=== PATIENT | female | born 1960 | race Caucasian/White ===

== ENCOUNTER 2020-02-08 08:32 | Outpatient (CLI) | payer OTHER, SELFPAY | END 2020-02-08 08:33 | disposition home or self-care (01) | LOC: CHSLAB 08:35 | PROVIDERS: PCP Internal Medicine; Visit Provider Specialist | DX: C44.1122 Basal cell carcinoma of skin of right lower eyelid, including canthus (principal); C44.1121 Basal cell carcinoma of skin of right upper eyelid, including canthus | CPT/HCPCS: 88305 ==

== ENCOUNTER 2020-07-14 06:53 | Outpatient (CLI) | payer OTHER, SELFPAY ==
[2020-07-14 07:07] LABS: Add Urine Microscopic? YES; Appearance Urine Clear (Clear); Bilirubin Urine Negative (Negative); Blood Urine 1+ (Negative); Color Urine Yellow (Yellow); Glucose Urine UA Negative (Negative); Ketones Urine Negative (Negative); Leukocyte Esterase Ur Negative (Negative); Nitrate Urine Negative (Negative); Protein Urine Negative (Negative); Urobilinogen Urine 0.2 mg/dL (0.2-1.0); pH Urine 6.5 (5.0-8.0)
[2020-07-14 07:07] LABS: Basophils Absolute Auto 0.03 K/mm3 (0.00-0.10); Basophils Percent Auto 0.6 % (0.0-1.0); Eosinophils Absolute Auto 0.12 K/mm3 (0.02-0.50); Eosinophils Percent Auto 2.4 % (1.0-6.0); Hemoglobin 13.6 g/dL (12.0-15.0); Immature Granulocyte Absolute 0.02 K/mm3 (0.00-0.00); Immature Granulocyte Percent A 0.4 % (0.0-0.0); Lymphocytes Absolute Auto 1.78 K/mm3 (1.10-4.50); Mean Corpuscular Hemoglobin 33.2 pg (27.0-31.0); Mean Corpuscular Volume 97.6 fL (78.0-102.0); Monocytes Absolute Auto 0.46 K/mm3 (0.10-0.90); Neutrophils Absolute Auto 2.7 K/mm3 (1.7-7.2); Neutrophils Percent Auto 52.6 % (50.0-70.0); Platelet Count Result 263 K/mm3 (150-420); White Blood Count 5.1 K/mm3 (4.8-10.8)
[2020-07-14 07:40] LABS: Mucus Urine Moderate /lpf; Squamous Epithelial Cell Urine Few /hpf (Few)
[2020-07-14 07:41] LABS: Bacteria Urine Trace /hpf
[2020-07-14 08:23] LABS: Alanine Aminotransferase 39 U/L (14-59); Albumin Level 4.2 g/dL (3.4-5.0); Alkaline Phosphatase 70 U/L (46-116); Anion Gap 8 mmol/L (8-16); Aspartate Amino Transferase 26 U/L (15-37); Bilirubin,Total 0.7 mg/dL (0.00-1.00); Blood Urea Nitrogen 13 mg/dL (7-18); Calcium 9.3 mg/dL (8.5-10.1); Carbon Dioxide 29 mmol/L (21-32); Chloride 103 mmol/L (98-108); Cholesterol 230 mg/dL (0-200); Estimated Glomerular Filt Rate > 60; Glucose 100 mg/dL (70-99); HDL Direct 112 mg/dL (40-60); LDL Cholesterol Calculated 103 mg/dL (<130); Osmolality Calculated 290 mOsm/kg (285-295); Potassium 3.6 mmol/L (3.5-5.1); Sodium 140 mmol/L (136-145); Thyroid Stimulating Hormone 1.29 uIU/mL (0.36-3.74); Triglycerides 75 mg/dL (0-150)
[2020-07-14 08:37] LABS: Free T4 Free Thyroxine 0.89 ng/dL (0.76-1.46)
[2020-07-17 22:10] LABS: Vitamin D 25 Hydroxy 34 ng/mL (30-100)
== END 2020-07-14 06:54 | disposition home or self-care (01) ==
LOC: CHSLAB 06:55
PROVIDERS: PCP Internal Medicine; Visit Provider Internal Medicine
DX: Z00.00 Encounter for general adult medical examination without abnormal findings (principal)
CPT/HCPCS: 36415; 80053; 80061; 81001; 82306; 84439; 84443; 85025

== ENCOUNTER 2020-07-19 13:56 | Outpatient (CLI) | payer OTHER, SELFPAY ==
--- NOTE | ~2020-07-19 | MM_ITS ---
EXAMINATION: MM screening [facility] BI w antonia HISTORY: Screening mammogram TECHNIQUE: Craniocaudal and mediolateral oblique 3-D tomosynthesis images were obtained and synthetic 2-D images were generated. CAD analysis was submitted and interpreted. COMPARISON: 05/28/2019 limited left breast ultrasound examination 05/30/2019, 02/12/2018, 08/26/2016 bilateral digital screening mammogram examinations BREAST PARENCHYMAL COMPOSITION: The breasts are heterogeneously dense, which may obscure small masses . FINDINGS: Scattered bilateral benign punctate microcalcifications. Approximately 1 cm low-density cir cumscribed cyst in the upper mid left breast, diminished in size since 2017. There is no evidence of suspicious mass, calcification, or architectural distortion to suggest malignancy in either breast. T here has been no suspicious interval change. IMPRESSION: 1. No mammographic evidence of malignancy. 2. Recommend routine screening mammography in one year. BI-RADS Category 2: Benign finding(s). Reviewed, dictated and finalized at location A. AG MACHINE OPERATOR
== END 2020-07-19 13:57 | disposition home or self-care (01) ==
LOC: CHSIMG 13:57
PROVIDERS: PCP Internal Medicine; Visit Provider Obstetrics & Gynecology
DX: Z12.31 Encounter for screening mammogram for malignant neoplasm of breast (principal)
CPT/HCPCS: 77063; 77067

== ENCOUNTER 2020-08-18 11:02 | Outpatient (CLI) | payer OTHER, SELFPAY ==
--- NOTE | ~2020-08-18 | DEXA_ITS ---
Bone Density Report Name: Suzan Casey Age: 60 Sex: Female Ethnicity: White Date of : 1960 Indication: postmenopausal; screening for osteoporosis; Referring Provider: Moriah Acuna Study: Bone densitometry was performed. Exam Date: August 18, 2020 Accession number: [id number] Bone Density: Region BMD T-score Z-score Classification AP Spine(L1-L4) 0.850 -1.8 -0.3 Osteopenia Femoral Neck (Left) 0.739 -1.0 0.3 Normal Total Hip (Left) 0.928 -0.1 0.9 Normal Femoral Neck (Right) 0.753 -0.9 0.5 Normal Total Hip (Right) 0.931 -0.1 0.9 Normal Femoral Neck Mean 0.746 -0.9 0.4 Normal Total Hip Mean 0.930 -0.1 0.9 Normal World Health Organization criteria for BMD impression classify patients as: Normal (T-score at or above -1.0), Osteopenia (T-score between -1.0 and -2.5), or Osteoporosis (T-score at or below -2.5). 10-year Fracture Risk(1): Major Osteoporotic Fracture 6.9% Hip Fracture 0.4% Reported Risk Factors: [place] (), Neck BMD=0.739, BMI=33.5 (1) FRAX(R) Version 3.08. Fracture probability calculated for an untreated patient. Fracture probability may be lower if the patient has received treatment. Clinical Information Provided by Patient: Menopause Age: 44 No regular weight bearing exercise Drinks caffeinated beverages Onset of menses at age 15 Number of children 3 Impression: The patient has low bone mass, based on the Total Spine T-score. Discussion: BONE DENSITY IS LOW AT ONE OR MORE SKELETAL SITES. This patient's lowest T-score is low at one or more skeletal sites. It meets the World Health Organization's (WHO) criteria for ?low bone mass? (T-score between -1.0 and -2.5). The patient's 10-year risk of fracture as calculated by FRAX is less than the threshold where pharmacological therapy is recommended by the National Osteoporosis Foundation (NOF). However, all treatment decisions require clinical judgment and consideration of individual patient factors, including patient preferences, comorbidities, previous drug use, risk factors not captured in the FRAX model (e.g., frailty, falls, vitamin D deficiency, increased bone turnover, interval significant decline in bone density) and possible under or overestimation of fracture risk by FRAX. The patient should follow a healthful lifestyle (good nutrition with adequate calcium and vitamin D, and appropriate weight-bearing exercise). Follow-Up: Consider repeating this study in 2 to 3 years to reassess this patient's status, or sooner if there is some new clinical indication. Reported by: Dr. Miles Uriarte on 08/18/2020 11:31:00 AM. Reviewed, dictated and finalized at location AJulita NEWELL
== END 2020-08-18 11:03 | disposition home or self-care (01) ==
LOC: CHSIMG 11:04
PROVIDERS: PCP Internal Medicine; Visit Provider Internal Medicine
DX: M81.0 Age-related osteoporosis without current pathological fracture (principal)
CPT/HCPCS: 77080

== ENCOUNTER 2021-07-20 08:17 | Outpatient (CLI) | payer OTHER, SELFPAY ==
[2021-07-20 08:39] LABS: Basophils Absolute Auto 0.03 K/mm3 (0.00-0.10); Basophils Percent Auto 0.4 % (0.0-1.0); Eosinophils Percent Auto 1.2 % (1.0-6.0); Hematocrit 42.7 % (35.0-49.0); Hemoglobin 14.2 g/dL (12.0-15.0); Immature Granulocyte Absolute 0.04 K/mm3 (0.00-0.00); Immature Granulocyte Percent A 0.5 % (0.0-0.0); Lymphocytes Absolute Auto 1.21 K/mm3 (1.10-4.50); Lymphocytes Percent Auto 14.6 % (18.0-42.0); Mean Corpuscular HGB Conc 33.3 g/dL (32.0-36.0); Mean Corpuscular Hemoglobin 33.6 pg (27.0-31.0); Mean Corpuscular Volume 100.9 fL (78.0-102.0); Mean Platelet Volume 9.6 fl (9.2-11.8); Monocytes Absolute Auto 0.84 K/mm3 (0.10-0.90); Monocytes Percent Auto 10.2 % (2.0-11.0); Neutrophils Absolute Auto 6.1 K/mm3 (1.7-7.2); Neutrophils Percent Auto 73.1 % (50.0-70.0); Platelet Count Result 256 K/mm3 (150-420); Red Blood Count 4.23 M/mm3 (4.20-5.40); Red Cell Distribution Width 13.2 % (11.6-14.4); White Blood Count 8.3 K/mm3 (4.8-10.8)
[2021-07-20 08:43] LABS: Add Urine Microscopic? YES; Appearance Urine Clear (Clear); Bilirubin Urine Negative (Negative); Blood Urine 1+ (Negative); Color Urine Yellow (Yellow); Glucose Urine UA Negative (Negative); Ketones Urine Negative (Negative); Leukocyte Esterase Ur Negative (Negative); Nitrate Urine Negative (Negative); Protein Urine Negative (Negative); Urobilinogen Urine 0.2 mg/dL (0.2-1.0)
[2021-07-20 08:49] LABS: RBC Urine 0-2 /hpf (0-2); WBC Urine None seen /hpf (0-3)
[2021-07-20 08:50] LABS: Bacteria Urine Trace /hpf; Squamous Epithelial Cell Urine Few /hpf (Few)
[2021-07-20 08:51] LABS: Creatinine Urine 90.64 mg/dL (40-278); MALB Creatinine Ratio 14.3 mg/g (0-30); Microalbumin Urine Random < 13.0 mg/L
[2021-07-20 09:31] LABS: Alanine Aminotransferase 43 U/L (14-59); Alkaline Phosphatase 73 U/L (46-116); Anion Gap 10 mmol/L (8-16); Aspartate Amino Transferase 37 U/L (15-37); Bilirubin,Total 0.7 mg/dL (0.00-1.00); Blood Urea Nitrogen 17 mg/dL (7-18); Calcium 8.8 mg/dL (8.5-10.1); Carbon Dioxide 28 mmol/L (21-32); Chloride 102 mmol/L (98-108); Cholesterol 221 mg/dL (0-200); Estimated Glomerular Filt Rate > 60; Free T3 2.65 pg/mL (2.18-3.98); Free T4 Free Thyroxine 0.82 ng/dL (0.76-1.46); Glucose 87 mg/dL (70-99); HDL Direct 112 mg/dL (40-60); LDL Cholesterol Calculated 99 mg/dL (<130); Osmolality Calculated 290 mOsm/kg (285-295); Sodium 140 mmol/L (136-145); Thyroid Stimulating Hormone 1.02 uIU/mL (0.36-3.74); Triglycerides 49 mg/dL (0-150)
[2021-07-24 14:36] LABS: Vitamin D 25 Hydroxy 34 ng/mL (30-100)
== END 2021-07-20 08:18 | disposition home or self-care (01) ==
LOC: CHSLAB 08:20
PROVIDERS: PCP Internal Medicine; Visit Provider Internal Medicine
DX: Z00.00 Encounter for general adult medical examination without abnormal findings (principal); I10 Essential (primary) hypertension
CPT/HCPCS: 36415; 80053; 80061; 81001; 82043; 82306; 84439; 84443; 84481; 85025; 86787

== ENCOUNTER 2021-07-23 11:17 | Outpatient (CLI) | payer OTHER, SELFPAY ==
--- NOTE | ~2021-07-23 | MM_ITS ---
EXAMINATION: MM screening [facility] BI w antonia HISTORY: Screening mammogram TECHNIQUE: Craniocaudal and mediolateral oblique 3-D tomosynthesis images were obtained and synthetic 2-D images were generated. CAD analysis was submitted and interpreted. COMPARISON: 07/19/2020, 05/20/2019, 02/12/2018 BREAST PARENCHYMAL COMPOSITION: There are scattered areas of fibroglandular density. FINDINGS: There is no evidence of suspicious mass, calcification, or architectural distortion to sugg est malignancy in either breast. There has been no suspicious interval change. IMPRESSION: 1. No mammographic evidence of malignancy. 2. Recommend routine screening mammography in one year. BI-RADS Category 1: Negative Reviewed, dictated and finalized at location A.
== END 2021-07-23 11:18 | disposition home or self-care (01) ==
LOC: CHSIMG 11:19
PROVIDERS: PCP Internal Medicine; Visit Provider Internal Medicine
DX: Z12.31 Encounter for screening mammogram for malignant neoplasm of breast (principal)
CPT/HCPCS: 77063; 77067

== ENCOUNTER 2022-07-20 10:15 | Outpatient (CLI) | payer OTHER, SELFPAY ==
[2022-07-20 10:31] LABS: Appearance Urine Slightly Cloudy (Clear); Basophils Absolute Auto 0.05 K/mm3 (0.00-0.10); Basophils Percent Auto 0.9 % (0.0-1.0); Bilirubin Urine Negative (Negative); Blood Urine Trace-Intact (Negative); Color Urine Yellow (Yellow); Eosinophils Absolute Auto 0.15 K/mm3 (0.02-0.50); Eosinophils Percent Auto 2.7 % (1.0-6.0); Glucose Urine UA Negative (Negative); Hematocrit 38.9 % (35.0-49.0); Hemoglobin 13.1 g/dL (12.0-15.0); Immature Granulocyte Absolute 0.02 K/mm3 (0.00-0.00); Immature Granulocyte Percent A 0.4 % (0.0-0.0); Ketones Urine Negative (Negative); Leukocyte Esterase Ur Trace LEU/UL (Negative); Lymphocytes Absolute Auto 2.16 K/mm3 (1.10-4.50); Lymphocytes Percent Auto 39.6 % (18.0-42.0); Mean Corpuscular HGB Conc 33.7 g/dL (32.0-36.0); Mean Corpuscular Hemoglobin 32.9 pg (27.0-31.0); Mean Corpuscular Volume 97.7 fL (78.0-102.0); Mean Platelet Volume 10.2 fl (9.2-11.8); Monocytes Absolute Auto 0.54 K/mm3 (0.10-0.90); Monocytes Percent Auto 9.9 % (2.0-11.0); Neutrophils Absolute Auto 2.5 K/mm3 (1.7-7.2); Neutrophils Percent Auto 46.5 % (50.0-70.0); Nitrate Urine Negative (Negative); Platelet Count Result 295 K/mm3 (150-420); Protein Urine Negative (Negative); Red Blood Count 3.98 M/mm3 (4.20-5.40); Red Cell Distribution Width 13.7 % (11.6-14.4); Urobilinogen Urine 0.2 mg/dL (0.2-1.0); White Blood Count 5.5 K/mm3 (4.8-10.8)
[2022-07-20 10:38] LABS: Add Urine Microscopic? YES; Amorphous Sediment Urine Moderate; Bacteria Urine Trace /hpf; RBC Urine 0-2 /hpf (0-2); Squamous Epithelial Cell Urine Few /hpf (Few); WBC Urine 0-3 /hpf (0-3)
[2022-07-20 11:06] LABS: Alanine Aminotransferase 33 U/L (14-59); Albumin Level 4.1 g/dL (3.4-5.0); Alkaline Phosphatase 67 U/L (46-116); Anion Gap 9 mmol/L (8-16); Aspartate Amino Transferase 25 U/L (15-37); Bilirubin,Total 0.5 mg/dL (0.00-1.00); Blood Urea Nitrogen 16 mg/dL (7-18); Carbon Dioxide 28 mmol/L (21-32); Chloride 106 mmol/L (98-108); Cholesterol 261 mg/dL (0-200); Estimated Glomerular Filt Rate > 60; Glucose 113 mg/dL (70-99); HDL Direct 123 mg/dL (40-60); LDL Cholesterol Calculated 129 mg/dL (<130); Osmolality Calculated 298 mOsm/kg (285-295); Potassium 4.2 mmol/L (3.5-5.1); Sodium 143 mmol/L (136-145); Thyroid Stimulating Hormone 1.03 uIU/mL (0.36-3.74); Total Protein 7.3 g/dL (6.4-8.2); Triglycerides 45 mg/dL (0-150)
[2022-07-22 15:13] LABS: Calcium 9.2 mg/dL (8.5-10.1)
== END 2022-07-20 10:16 | disposition home or self-care (01) ==
PROVIDERS: PCP Internal Medicine; Visit Provider Internal Medicine
DX: Z00.00 Encounter for general adult medical examination without abnormal findings (principal)
CPT/HCPCS: 36415; 80053; 80061; 81001; 84439; 84443; 85025

== ENCOUNTER 2022-07-25 07:55 | Outpatient (CLI) | payer OTHER, SELFPAY ==
--- NOTE | ~2022-07-25 | MM_ITS ---
EXAMINATION: MM screening flavio BI w antonia HISTORY: Screening mammogram TECHNIQUE: Craniocaudal and mediolateral oblique 3-D tomosynthesis images were obtained and synthetic 2-D images were generated. CAD analysis was submitted and interpreted. COMPARISON: 07/23/2021, 07/19/2020 bilateral screening mammograms 05/28/2019 limited left breast ultrasound: Findings included 10 x 11.3 mm simple cyst at 12:00 2 cm fr om nipple 05/20/2019 bilateral screening mammogram BREAST PARENCHYMAL COMPOSITION: There are scattered areas of fibroglandular density. FINDINGS: Mildly diminished size of left 12:00 breast cyst since 05/20/2019, currently measuring betwee n 8 and 9 mm, compared to the 10 x 11.3 mm measurement on 05/28/2019 left breast ultrasound examinatio n. There is no evidence of suspicious mass, calcification, or architectural distortion to suggest malig bert in either breast. There has been no suspicious interval change. IMPRESSION: 1. No mammographic evidence of malignancy. 2. Recommend routine screening mammography in one year. BI-RADS Category 2: Benign finding(s). Reviewed, dictated and finalized at location A.
--- NOTE | ~2022-07-25 | US_ITS ---
EXAMINATION: US aorta [facility] DATE: 07/25/2022 08:44 INDICATION: Abdominal aortic aneurysm TECHNIQUE: Grayscale, color Doppler, and pulsed Doppler images of the aorta and common iliac arteries were obtained. COMPARISON: None. FINDINGS: The proximal aorta measures 2.3 cm. The mid aorta measures 1.9 cm. The distal aorta measures 1.8 cm. The right common iliac artery measures 1.0 cm. The left common iliac artery measures 1.3 cm. IMPRESSION: 1. Normal caliber abdominal aorta Reviewed, dictated and finalized at location L.
--- NOTE | ~2022-07-25 | US_ITS ---
EXAMINATION: US carotid duplex BI DATE: 07/25/2022 08:44 INDICATION: Carotid bruit. TECHNIQUE: Grayscale, color Doppler, and pulsed Doppler images of the cervical carotid arteries were obtained. The degree of vessel stenosis is placed in one of the following categories: normal, <50%, 5 0-69%, >=70% but less than near-occlusion, near-occlusion, or total occlusion. Note that percent sten osis relative to normal distal artery lumen diameter is indirectly measured from velocity measurement s as described by Enoch, et al. Radiology 2003; 229:340-346. COMPARISON: None. FINDINGS: RIGHT: The right common carotid artery (CCA) peak systolic velocity (PSV) is 144 cm/s. The right internal ca rotid artery (ICA) PSV is 94 cm/s. The right ICA end-diastolic velocity (EDV) is 47 cm/s. The right I CA/CCA PSV ratio is 0.7. Grayscale and color Doppler images yield an estimate of <50% diameter reduct ion from plaque in the ICA. The external carotid artery (ECA) PSV is 131 cm/s. There is antegrade marcelo w in the right vertebral artery. LEFT: The left CCA PSV is 151 cm/s. The left ICA PSV is 114 cm/s. The left ICA EDV is 43 cm/s. The left ICA /CCA PSV ratio is 0.8. Grayscale and color Doppler images yield an estimate of <50% diameter reductio n from plaque in the ICA. The ECA PSV is 171 cm/s. There is antegrade flow in the left vertebral ernesto ry. IMPRESSION: 1. <50% stenosis from minimal plaque in the right internal carotid artery. 2. <50% stenosis from minimal plaque in the left internal carotid artery. Reviewed, dictated and finalized at location L.
--- NOTE | ~2022-07-25 | DEXA_ITS ---
Bone Density Report Name: MATIAS RODRIGUEZ Age: 62 Sex: Female Ethnicity: White Date of : 1960 Indication: postmenopausal; screening for osteoporosis; height loss; Referring Provider: Moriah Acuna Study: Bone densitometry was performed. Exam Date: July 25, 2022 Accession number: [id number] Bone Density: Region BMD T-score Z-score Classification AP Spine(L1-L4) 0.839 -1.9 -0.3 Osteopenia Femoral Neck (Left) 0.741 -1.0 0.4 Normal Total Hip (Left) 0.945 0.0 1.1 Normal Femoral Neck (Right) 0.813 -0.3 1.1 Normal Total Hip (Right) 0.930 -0.1 1.0 Normal Femoral Neck Mean 0.777 -0.7 0.8 Normal Total Hip Mean 0.937 0.0 1.1 Normal World Health Organization criteria for BMD impression classify patients as: Normal (T-score at or above -1.0), Osteopenia (T-score between -1.0 and -2.5), or Osteoporosis (T-score at or below -2.5). 10-year Fracture Risk(1): Major Osteoporotic Fracture 7.2% Hip Fracture 0.4% Reported Risk Factors: [place] (), Neck BMD=0.741, BMI=34.1 (1) FRAX(R) Version 3.08. Fracture probability calculated for an untreated patient. Fracture probability may be lower if the patient has received treatment. Clinical Information Provided by Patient: Patient maximum height was 68 Menopause Age: 44 Drinks caffeinated beverages Onset of menses at age 15 Number of children 3 Impression: The patient has low bone mass, based on the Total Spine T-score. Discussion: BONE DENSITY IS LOW AT ONE OR MORE SKELETAL SITES. This patient's lowest T-score is low at one or more skeletal sites. It meets the World Health Organization's (WHO) criteria for ?low bone mass? (T-score between -1.0 and -2.5). The patient's 10-year risk of fracture as calculated by FRAX is less than the threshold where pharmacological therapy is recommended by the National Osteoporosis Foundation (NOF). However, all treatment decisions require clinical judgment and consideration of individual patient factors, including patient preferences, comorbidities, previous drug use, risk factors not captured in the FRAX model (e.g., frailty, falls, vitamin D deficiency, increased bone turnover, interval significant decline in bone density) and possible under or overestimation of fracture risk by FRAX. The patient should follow a healthful lifestyle (good nutrition with adequate calcium and vitamin D, and appropriate weight-bearing exercise). Follow-Up: Consider repeating this study in 2 to 3 years to reassess this patient's status, or sooner if there is some new clinical indication. Reported by: Dr. Miles Uriarte on 07/25/2022 9:27:00 AM. Reviewed, dictated and finalized at location AJulita NEWELL
[2022-07-25 08:29] LABS: Hemoglobin A1C 5.3 % (<5.7)
[2022-07-25 09:40] LABS: Anion Gap 11 mmol/L (8-16); Blood Urea Nitrogen 14 mg/dL (7-18); Calcium 9.2 mg/dL (8.5-10.1); Carbon Dioxide 27 mmol/L (21-32); Chloride 108 mmol/L (98-108); Estimated Glomerular Filt Rate > 60; Glucose 95 mg/dL (70-99); Osmolality Calculated 302 mOsm/kg (285-295); Sodium 146 mmol/L (136-145)
== END 2022-07-25 07:56 | disposition home or self-care (01) ==
PROVIDERS: PCP Internal Medicine; Visit Provider Internal Medicine
DX: R73.01 Impaired fasting glucose (principal); M81.0 Age-related osteoporosis without current pathological fracture; R09.89 Other specified symptoms and signs involving the circulatory and respiratory systems; Z12.31 Encounter for screening mammogram for malignant neoplasm of breast; Z78.0 Asymptomatic menopausal state; I65.23 Occlusion and stenosis of bilateral carotid arteries; M85.88 Other specified disorders of bone density and structure, other site
CPT/HCPCS: 36415; 76706; 77063; 77067; 77080; 80048; 83036; 93880

== ENCOUNTER 2023-07-21 10:04 | Outpatient (CLI) | payer OTHER, SELFPAY ==
[2023-07-21 10:24] LABS: Appearance Urine Clear (Clear); Basophils Absolute Auto 0.04 K/mm3 (0.00-0.10); Basophils Percent Auto 0.8 % (0.0-1.0); Bilirubin Urine Negative (Negative); Blood Urine 1+ (Negative); Color Urine Yellow (Yellow); Eosinophils Absolute Auto 0.15 K/mm3 (0.02-0.50); Glucose Urine UA Negative (Negative); Hematocrit 42.9 % (35.0-49.0); Hemoglobin 14.5 g/dL (12.0-15.0); Immature Granulocyte Absolute 0.03 K/mm3 (0.00-0.00); Immature Granulocyte Percent A 0.6 % (0.0-0.0); Ketones Urine Negative (Negative); Leukocyte Esterase Ur Negative LEU/UL (Negative); Lymphocytes Absolute Auto 1.87 K/mm3 (1.10-4.50); Lymphocytes Percent Auto 37.6 % (18.0-42.0); Mean Corpuscular HGB Conc 33.8 g/dL (32.0-36.0); Mean Corpuscular Hemoglobin 32.7 pg (27.0-31.0); Mean Corpuscular Volume 96.6 fL (78.0-102.0); Mean Platelet Volume 9.5 fl (9.2-11.8); Monocytes Absolute Auto 0.51 K/mm3 (0.10-0.90); Monocytes Percent Auto 10.2 % (2.0-11.0); Neutrophils Absolute Auto 2.4 K/mm3 (1.7-7.2); Neutrophils Percent Auto 47.8 % (50.0-70.0); Nitrate Urine Negative (Negative); Platelet Count Result 247 K/mm3 (150-420); Protein Urine Negative (Negative); Red Blood Count 4.44 M/mm3 (4.20-5.40); Urobilinogen Urine 0.2 mg/dL (0.2-1.0); pH Urine 6.5 (5.0-8.0)
[2023-07-21 10:36] LABS: Add Urine Microscopic? YES; Bacteria Urine Rare /hpf; RBC Urine 0-2 /hpf (0-2); Squamous Epithelial Cell Urine Few /hpf (Few); WBC Urine None seen /hpf (0-3)
[2023-07-21 11:13] LABS: Alanine Aminotransferase 34 U/L (14-59); Albumin Level 3.9 g/dL (3.4-5.0); Alkaline Phosphatase 64 U/L (46-116); Anion Gap 10 mmol/L (8-16); Aspartate Amino Transferase 19 U/L (15-37); Bilirubin,Total 0.6 mg/dL (0.00-1.00); Blood Urea Nitrogen 16 mg/dL (7-18); Calcium 8.9 mg/dL (8.5-10.1); Carbon Dioxide 28 mmol/L (21-32); Chloride 104 mmol/L (98-108); Cholesterol 250 mg/dL (0-200); Estimated Glomerular Filt Rate > 60; Glucose 102 mg/dL (70-99); HDL Direct 125 mg/dL (40-60); LDL Cholesterol Calculated 116 mg/dL (<130); Osmolality Calculated 295 mOsm/kg (285-295); Sodium 142 mmol/L (136-145); Total Protein 7.1 g/dL (6.4-8.2); Triglycerides 44 mg/dL (0-150)
== END 2023-07-21 10:05 | disposition home or self-care (01) ==
LOC: CHSLAB 10:09
PROVIDERS: PCP Internal Medicine; Visit Provider Internal Medicine
DX: Z00.00 Encounter for general adult medical examination without abnormal findings (principal)
CPT/HCPCS: 36415; 80053; 80061; 81001; 85025

== ENCOUNTER 2023-07-28 13:09 | Outpatient (CLI) | payer OTHER, SELFPAY ==
--- NOTE | ~2023-07-28 | MM_ITS ---
EXAMINATION: MM screening [facility] BI w antonia HISTORY: Screening TECHNIQUE: Craniocaudal and mediolateral oblique 3-D tomosynthesis images were obtained and synthetic 2-D images were generated. CAD analysis was submitted and interpreted. COMPARISON: Comparison to multiple prior studies sequentially, with oldest reviewed study dated 08/26. BREAST PARENCHYMAL COMPOSITION: Dense: The breasts are heterogeneously dense, which may obscure small masses FINDINGS: The left breast is stable without evidence for malignancy. There are developing nodular asy mmetries centered in the upper outer quadrant of the right breast, middle third. IMPRESSION: 1. Developing nodular asymmetries of the right breast. 2. Additional mammographic views and possible breast ultrasound are recommended. BI-RADS Category 0: Incomplete: Needs additional imaging evaluation. Reviewed, dictated and finalized at location A. IMPRESSION: 1. Developing nodular asymmetries of the right breast. 2. Additional mammographic views and possible breast ultrasound are recommended . BI-RADS Category 0: Incomplete: Needs additional imaging evaluation.
== END 2023-07-28 13:10 | disposition home or self-care (01) ==
LOC: CHSIMG 13:10
PROVIDERS: PCP Internal Medicine; Visit Provider Obstetrics & Gynecology
DX: Z12.31 Encounter for screening mammogram for malignant neoplasm of breast (principal); R92.8 Other abnormal and inconclusive findings on diagnostic imaging of breast
CPT/HCPCS: 77063; 77067

== ENCOUNTER 2023-08-25 08:48 | Outpatient (CLI) | payer OTHER, SELFPAY ==
--- NOTE | ~2023-08-25 | MMUS_ITS ---
EXAMINATION: MM diagnostic flavio RT w antonia, US breast RT complete HISTORY: Follow-up developing nodular asymmetries of the right breast TECHNIQUE: Additional 3-D tomosynthesis images of the right breast were performed and synthetic 2-D i mages were generated. CAD analysis was submitted and interpreted. High resolution complete right hugo st ultrasound was performed. COMPARISON: Comparison to multiple prior studies sequentially, with oldest reviewed study dated 08/2017. BREAST PARENCHYMAL COMPOSITION: Dense: The breasts are heterogeneously dense, which may obscure small masses FINDINGS: MAMMOGRAPHIC FINDINGS: In the upper central aspect of the right breast there is a radiolucent mass which is partially obscur ed by fibroglandular tissue. ULTRASOUND: Complete US of all 4 quadrants of the right breast and retroareolar region was reviewed. At 12:00, 5 cm from the nipple there is a 6 mm cyst corresponding to the mammographic finding. No other masses or cysts are identified in the right breast. IMPRESSION: 1. No evidence for malignancy in the right breast. Benign finding. 2. Routine yearly screening mammogram and regular clinical breast examination are recommended. BI-RADS Category 2: Benign finding(s). Reviewed, dictated and finalized at location A. IMPRESSION: 1. No evidence for malignancy in the right breast. Benign finding. 2. Routine yearly screening mammogram and regular clinical breast examination a re recommended. BI-RADS Category 2: Benign finding(s).
== END 2023-08-25 08:49 | disposition home or self-care (01) ==
LOC: CHSIMG 08:53
PROVIDERS: PCP Internal Medicine; Visit Provider Internal Medicine
DX: R92.8 Other abnormal and inconclusive findings on diagnostic imaging of breast (principal)
CPT/HCPCS: 76641; 77061; 77065; G0279

== ENCOUNTER 2024-07-20 09:27 | Outpatient (CLI) | payer MEDICARE, OTHER, SELFPAY ==
[2024-07-20 09:52] LABS: Basophils Absolute Auto 0.05 K/mm3 (0.00-0.10); Eosinophils Percent Auto 2.1 % (1.0-6.0); Hematocrit 44.4 % (35.0-42.0); Hemoglobin 14.7 g/dL (11.7-13.8); Immature Granulocyte Absolute 0.02 K/mm3 (0.00-0.00); Immature Granulocyte Percent A 0.4 % (0.0-0.0); Lymphocytes Absolute Auto 1.63 K/mm3 (1.10-4.50); Mean Corpuscular HGB Conc 33.1 g/dL (32-36); Mean Corpuscular Hemoglobin 32.5 pg (27.0-31.0); Mean Corpuscular Volume 98.2 fL (78.0-102.0); Mean Platelet Volume 9.7 fl (9.2-11.8); Monocytes Percent Auto 10.4 % (2.0-11.0); Neutrophils Percent Auto 52.1 % (50.0-70.0); Platelet Count Result 290 K/mm3 (150-420); Red Blood Count 4.52 M/mm3 (4.20-5.40); Red Cell Distribution Width 13.8 % (11.6-14.4); White Blood Count 4.8 K/mm3 (4.8-10.8)
[2024-07-20 09:53] LABS: Add Urine Microscopic? NO; Appearance Urine Clear (Clear); Bilirubin Urine Negative (Negative); Blood Urine Trace-intact (Negative); Color Urine Yellow (Yellow); Glucose Urine UA Negative (Negative); Ketones Urine Negative (Negative); Leukocyte Esterase Ur Negative LEU/UL (Negative); Nitrate Urine Negative (Negative); Protein Urine Negative (Negative); Urobilinogen Urine 0.2 mg/dL (0.2-1.0); pH Urine 6.5 (5.0-8.0)
--- OUTSIDE RECORDS SUMMARY | 2024-07-20 10:26 | XMS_ITS | Clinical Summary ---
Author Organization [facility] Address [address] [place] [id number] Care Team Providers Care Department Helper Name Role Phone Unavailable Primary Care Provider Unavailabl e Social History Tobacco Use Types Packs/Day Years Used Date Smoking Tobacco: Never Assessed Comments Unknown Sex and Gender Information Value Date Recorded Sex Assigned at Not on file Legal Sex Female 4:43 PM CDT Gender Identity Not on file Sexual Orientation Not on file Plan of Treatment Health Maintenance Due Date Last Done Comments Cervical Cancer Screening Pa p Smear (Age 30 to 64) Every 3 Years 1960 Colorectal Cancer Screening Colonoscopy (10 Years) 1959 Annual Physical 1962 Hepatitis C 1977 DTaP, Tdap and Td Vaccines ( 1 - Tdap) 1978 Cervical Cancer Screening Pa p with HPV Testing (Age 30 to 64) Every 5 Years 1989 Cervical Cancer Screening with HPV 1989 Mammogram Screening 1999 Zoster Vaccines (1 of 2) 2009 COVID-19 Vaccine (2023-2 5 season) 2024 Influenza Adult (#1) 2024 Dexa Scan (General) 2024 Pneumococcal Vaccine: 65+ Ye ars (1 of 1 - PCV) 2024 RSV Immunization or 60+ Years (1 - 1-dose 75+ series) 2034 Meningococcal B Vaccine Aged Out No l onger eligible based on patient's age to complete this topic Meningococcal Vaccine Aged Out No tonja naima eligible based on patient's age to complete this topic Pneumococcal Vaccine: Pediat rics (0 to 5 Years) and At-Risk Patients (6 to 64 Years) Aged Out No longer eligible b ased on patient's age to complete this topic RSV Immunizations Under 20 Months Aged Out No longer eligible based on patient's age to complete this topic
[2024-07-20 10:30] LABS: Alanine Aminotransferase 27 U/L (14-59); Albumin Level 4.3 g/dL (3.4-5.0); Alkaline Phosphatase 85 U/L (46-116); Anion Gap 9 mmol/L (4-12); Aspartate Amino Transferase 19 U/L (15-37); Bilirubin,Total 0.5 mg/dL (0.00-1.00); Blood Urea Nitrogen 15 mg/dL (7-18); Calcium 9.3 mg/dL (8.5-10.1); Carbon Dioxide 27 mmol/L (21-32); Chloride 108 mmol/L (98-108); Cholesterol 250 mg/dL (0-200); Estimated Glomerular Filt Rate > 60; Free T4 Free Thyroxine 0.82 ng/dL (0.76-1.46); Glucose 98 mg/dL (70-99); HDL Direct 124 mg/dL (40-60); LDL Cholesterol Calculated 117 mg/dL (<130); Osmolality Calculated 298 mOsm/kg (285-295); Potassium 4.4 mmol/L (3.5-5.1); Sodium 144 mmol/L (136-145); Thyroid Stimulating Hormone 0.76 uIU/mL (0.36-3.74); Total Protein 7.5 g/dL (6.4-8.2); Triglycerides 46 mg/dL (0-150)
== END 2024-07-20 09:28 | disposition home or self-care (01) ==
PROVIDERS: PCP Internal Medicine; Visit Provider Internal Medicine
DX: Z13.6 Encounter for screening for cardiovascular disorders (principal); R53.83 Other fatigue
CPT/HCPCS: 36415; 80053; 80061; 81003; 84439; 84443; 85025

== ENCOUNTER 2024-07-29 12:49 | Outpatient (CLI) | payer MEDICARE, OTHER, SELFPAY ==
--- NOTE | ~2024-07-29 | MM_ITS ---
EXAMINATION: MM screening flavio BI w antonia HISTORY: Screening TECHNIQUE: Craniocaudal and mediolateral oblique 3-D tomosynthesis images were obtained and synthetic 2-D images were generated. CAD analysis was submitted and interpreted. COMPARISON: Comparison to multiple prior studies sequentially, with oldest reviewed study dated 01/2020. BREAST PARENCHYMAL COMPOSITION: Dense: The breasts are heterogeneously dense, which may obscure small masses FINDINGS: There is no evidence of suspicious mass, calcification, or architectural distortion to sugg est malignancy in either breast. There has been no suspicious interval change. IMPRESSION: 1. No mammographic evidence of malignancy. 2. Recommend routine screening mammography in one year. BI-RADS Category 1: Negative Reviewed, dictated and finalized at location B.
--- NOTE | ~2024-07-29 | DEXA_ITS ---
Bone Density Report Name: MATIAS RODRIGUEZ Age: 64 Sex: Female Ethnicity: White Date of : 1960 Indication: osteopenia; height loss; cancer; Referring Provider: UNKNOWN, UNKNOWN Study: Bone densitometry was performed. Exam Date: July 29, 2024 Accession number: [id number] Bone Density: Region BMD T-score Z-score Classification AP Spine(L1-L4) 0.793 -2.3 -0.5 Osteopenia Femoral Neck (Left) 0.675 -1.6 -0.1 Osteopenia Total Hip (Left) 0.906 -0.3 0.9 Normal Femoral Neck (Right) 0.792 -0.5 1.0 Normal Total Hip (Right) 0.951 0.1 1.3 Normal Femoral Neck Mean 0.733 -1.0 0.5 Normal Total Hip Mean 0.928 -0.1 1.1 Normal World Health Organization criteria for BMD impression classify patients as: Normal (T-score at or above -1.0), Osteopenia (T-score between -1.0 and -2.5), or Osteoporosis (T-score at or below -2.5). 10-year Fracture Risk(1): Major Osteoporotic Fracture 8.3% Hip Fracture 0.9% Reported Risk Factors: [place] (), Neck BMD=0.675, BMI=34.0 (1) FRAX(R) Version 3.08. Fracture probability calculated for an untreated patient. Fracture probability may be lower if the patient has received treatment. Previous Exams: Region Exam Age BMD T-score BMD Change BMD Change Date g/cm2 vs Baseline vs Previous AP Spine (L1-L4) 07/29/2024 64 0.793 -2.3 -0.057 (-6.7%) -0.045 (-5.4%) 07/25/2022 62 0.839 -1.9 -0.012 (-1.4%) -0.012 (-1.4%) 08/18/2020 60 0.850 -1.8 Total Hip(Left) 07/29/2024 64 0.906 -0.3 -0.022 (-2.3%) -0.038 (-4.1%) 07/25/2022 62 0.945 0.0 0.017 (1.8%) 0.017 (1.8%) 08/18/2020 60 0.928 -0.1 Total Hip(Right) 07/29/2024 64 0.951 0.1 0.019 (2.1%) 0.021 (2.3%) 07/25/2022 62 0.930 -0.1 -0.002 (-0.2%) -0.002 (-0.2%) 08/18/2020 60 0.931 -0.1 *Denotes significance at 95% confidence level, LSC for AP Spine = 0.022 g/cm2, LSC for Total Hip = 0.027 g/cm2 # Denotes dissimilar scan types or analysis methods Clinical Information Provided by Patient: Has used the following medications: multi Has the following medical conditions: Cancer Patient maximum height was 68. Menopause Age: 44 Does not regularly consume dairy products Drinks caffeinated beverages Onset of menses at age 15 Number of children 3 Impression: The patient has low bone mass, based on the Total Spine T-score. The BMD for the AP Spine (L1-L4) decreased, changing by -5.4% since the last DXA exam. The BMD for the Total Hip(Left) decreased, changing by -4.1% since the last DXA exam. Discussion: BONE DENSITY IS LOW AT ONE OR MORE SKELETAL SITES. This patient's lowest T-score is low at one or more skeletal sites. It meets the World Health Organization's (WHO) criteria for ?low bone mass? (T-score between -1.0 and -2.5). The patient's 10-year risk of fracture as calculated by FRAX is less than the threshold where pharmacological therapy is recommended by the National Osteoporosis Foundation (NOF). However, all treatment decisions require clinical judgment and consideration of individual patient factors, including patient preferences, comorbidities, previous drug use, risk factors not captured in the FRAX model (e.g., frailty, falls, vitamin D deficiency, increased bone turnover, interval significant decline in bone density) and possible under or overestimation of fracture risk by FRAX. The patient should follow a healthful lifestyle (good nutrition with adequate calcium and vitamin D, and appropriate weight-bearing exercise). Follow-Up: Consider repeating this study in 2 years to reassess this patient's status, or sooner if there is some new clinical indication. Reported by: NADER on 07/29/2024 1:14:00 PM. Reviewed, dictated and finalized at location A.
--- OUTSIDE RECORDS SUMMARY | 2024-07-29 13:09 | XMS_ITS | Clinical Summary ---
Author Organization [facility] Address [address] [place] [id number] Care Team Providers Care Buncher Hand Name Role Phone Unavailable Primary Care Provider [...]
== END 2024-07-29 12:50 | disposition home or self-care (01) ==
LOC: CHSIMG 12:49
PROVIDERS: PCP Internal Medicine; Visit Provider Obstetrics & Gynecology
DX: Z12.31 Encounter for screening mammogram for malignant neoplasm of breast (principal); Z78.0 Asymptomatic menopausal state; M85.89 Other specified disorders of bone density and structure, multiple sites
CPT/HCPCS: 77063; 77067; 77080

== ENCOUNTER 2024-08-03 13:20 | Outpatient (CLI) | payer MEDICARE, OTHER, SELFPAY ==
--- NOTE | ~2024-08-03 | US_ITS ---
EXAMINATION: US carotid duplex BI DATE: 08/03/2024 13:41 INDICATION: Carotid stenosis TECHNIQUE: Grayscale, color Doppler, and pulsed Doppler images of the cervical carotid arteries were obtained. The degree of vessel stenosis is placed in one of the following categories: normal, <50%, 5 0-69%, >=70% but less than near-occlusion, near-occlusion, or total occlusion. Note that percent sten osis relative to normal distal artery lumen diameter is indirectly measured from velocity measurement s as described by Enoch, et al. Radiology 2003; 229:340-346. Notes: Normal: Peak systolic velocity <125 centimeters/sec and no plaque <50%. Peak systolic velocity <125 ( EDV <40; ICA/CCA PSV ratio <2.0; used these factors only a tandem lesions or low cardiac output or co ntralateral disease) 50-69 %: PSV 125-230 (EDV 40-100; ratio 2-4) >= 70% but less than near occlusion: PSV greater than 230 (EDV > 100; ratio> 4.0) Near Occlusion: PSV that is variable; markedly narrowed lumen Occlusion: Absent flow on color/spectral Doppler and no lumen on mccann scale. COMPARISON: None. FINDINGS: RIGHT: The right common carotid artery (CCA) peak systolic velocity (PSV) is 102 cm/s. The right internal ca rotid artery (ICA) PSV is 95 cm/s. The right ICA end-diastolic velocity (EDV) is 27 cm/s. The right I CA/CCA PSV ratio is 0.93. The external carotid artery (ECA) PSV is 100 cm/s. There is antegrade flow in the right vertebral artery. LEFT: The left CCA PSV is 106 cm/s. The left ICA PSV is 92 cm/s. The left ICA EDV is 27 cm/s. The left ICA/ CCA PSV ratio is 0.9. The ECA PSV is 135 cm/s. There is antegrade flow in the left vertebral artery. IMPRESSION: 1. Less than 50% stenosis in the right internal carotid artery by sonographic criteria. 2. Less than 50% stenosis in the left internal carotid artery by sonographic criteria. Reviewed, dictated and finalized at location A. IMPRESSION: 1. Less than 50% stenosis in the right internal carotid artery by sonographic jaiden gibbs. 2. Less than 50% stenosis in the left internal carotid artery by sonographic noman pacheco.
--- OUTSIDE RECORDS SUMMARY | 2024-08-03 15:30 | XMS_ITS | Clinical Summary ---
Author Organization [facility] Address [address] [place] [id number] Care Team Providers Care Dethistler Operator Name Role Phone Unavailable Primary Care Provider [...]
== END 2024-08-03 13:21 | disposition home or self-care (01) ==
PROVIDERS: PCP Internal Medicine; Visit Provider Internal Medicine
DX: M81.0 Age-related osteoporosis without current pathological fracture (principal); I65.23 Occlusion and stenosis of bilateral carotid arteries
CPT/HCPCS: 93880

== ENCOUNTER 2024-08-10 14:28 | Outpatient (CLI) | payer MEDICARE, OTHER, SELFPAY ==
--- OUTSIDE RECORDS SUMMARY | 2024-08-10 16:03 | XMS_ITS | Clinical Summary ---
Author Organization [facility] Address [address] [place] [id number] Care Team Providers Care Japanese Professor Name Role Phone Unavailable Primary Care Provider Unavailabl e Social History Tobacco Use Types Packs/Day Years Used Date Smoking Tobacco: Never Assessed Comments Unknown Sex and Gender Information Value Date Recorded Sex Assigned at Not on file Legal Sex Female 4:43 PM CDT Gender Identity Not on file Sexual Orientation Not on file Plan of Treatment Health Maintenance Due Date Last Done Comments Colorectal Cancer Screening Colonoscopy (10 Years) 1959 Hepatitis C 1977 DTaP, Tdap and Td Vaccines ( 1 - Tdap) 1978 Mammogram Screening 1999 Zoster Vaccines (1 of 2) 2009 COVID-19 Vaccine ( - 2023-2 5 season) 2024 Influenza Adult (#1) 2024 [...]
== END 2024-08-10 14:29 | disposition home or self-care (01) ==
LOC: CHSLAB 14:31
PROVIDERS: PCP Internal Medicine; Visit Provider Specialist
DX: C44.612 Basal cell carcinoma of skin of right upper limb, including shoulder (principal)
CPT/HCPCS: 88305

== ENCOUNTER 2024-08-30 10:39 | Outpatient (CLI) | payer MEDICARE, SELFPAY ==
[2024-08-30 11:39] LABS: Anion Gap 9 mmol/L (4-12); Blood Urea Nitrogen 13 mg/dL (7-18); Calcium 9.1 mg/dL (8.5-10.1); Carbon Dioxide 28 mmol/L (21-32); Chloride 105 mmol/L (98-108); Estimated Glomerular Filt Rate > 60; Glucose 147 mg/dL (70-99); Osmolality Calculated 297 mOsm/kg (285-295); Potassium 4.4 mmol/L (3.5-5.1); Sodium 142 mmol/L (136-145)
--- OUTSIDE RECORDS SUMMARY | 2024-08-30 12:11 | XMS_ITS | Clinical Summary ---
Author Organization [facility] Address [address] [place] [id number] Care Team Providers Care Head Bander And Liner Operator Name Role Phone Unavailable Primary Care [...] 1 - Tdap) 1978 Mammogram Screening 1999 Pneumococcal Vaccine: 50+ Ye ars (1 of 1 - PCV) 2009 Zoster Vaccines (1 of 2) 2009 COVID-19 Vaccine ( - 2023-2 5 season) 2024 Dexa Scan (General) 2024 RSV Immunization or 60+ Years (1 [...]
== END 2024-08-30 10:40 | disposition home or self-care (01) ==
LOC: CHSLAB 10:41
PROVIDERS: PCP Internal Medicine; Visit Provider Internal Medicine
DX: I10 Essential (primary) hypertension (principal)
CPT/HCPCS: 36415; 80048